=== PATIENT | female | born 1985 ===

== ENCOUNTER 2017-03-17 11:00 | Emergency (ER) | payer OTHER ==
[2017-03-17 11:00] VITALS: BMI 28.3
[2017-03-17 11:16] VITALS: BP 122/62; PULSE 74; RESP 20; TEMP 96.8; O2SAT 100
[2017-03-17 12:56] LABS: BASO % 0.4 % (0.0-2.0); EOS % 0.9 % (0.0-4.0); HEMATOCRIT 37.4 % (34.0-47.0); LYMPH # 1.3 K/uL (1.0-4.3); LYMPH % 34.4 % (20.0-40.0); MEAN CELL VOLUME 87.6 fl (81.0-99.0); MEAN CORPUSCULAR HEMOGLOBIN 29.2 pg (27.0-31.0); MEAN CORPUSCULAR HGB CONC 33.4 g/dL (33.0-37.0); MEAN PLATELET VOLUME 7.8 fl (7.2-11.7); MONO # 0.2 K/uL (0.0-0.8); MONO % 4.8 % (0.0-10.0); NEUT # 2.3 K/uL (1.8-7.0); NEUT % 59.5 % (50.0-75.0); RED CELL DISTRIBUTION WIDTH 13.6 % (11.5-14.5); WHITE BLOOD COUNT 3.8 K/uL (4.8-10.8)
[2017-03-17 13:08] LABS: BLOOD UREA NITROGEN 10 mg/dl (7-17); CALCIUM 8.8 mg/dL (8.4-10.2); CARBON DIOXIDE 26 mmol/L (22-30); CHLORIDE 105 mmol/L (98-107); GFR AFRICAN-AMERICAN > 60; GLUCOSE,RANDOM 89 mg/dL (65-105); SODIUM 141 mmol/l (132-148)
--- NOTE | 2017-03-17 13:37 | US ---
Indication: Vaginal bleeding Comparison: Ob transvaginal ultrasound performed 04/22/14 Technique: Transvaginal pelvic ultrasound. Findings: The uterus measures approximately 9.0 x 6.7 x 4.7 cm. Anteverted. Cervix length measures approximately 4.3 cm. Nabothian cysts. Endometrial thickness measures approximately 7 mm. No evidence of intrauterine gestational sac. The right ovary measures 2.9 x 2.8 x 2.5 cm. The left ovary measures 4.5 x 3.5 x 1.4 cm. Blood flow was demonstrated to both ovaries. Impression: No evidence of intrauterine gestational sac. If indeed the patient is based on serum beta HCG values, the sonographic findings represent either: Very early IUP; embryonic demise; ectopic gestation. Follow-up with serial quantitative serum beta HCG measurements and post OBGYN follow-up as clinically indicated, since ectopic gestation cannot be excluded based only on sonographic findings.
--- NOTE | 2017-03-17 13:46 | ED PDOC ---
HPI: Female Pain Time Seen by Provider: 03/17/17 11:43 Chief Complaint (Nursing): Female Genitourinary Chief Complaint (Provider): Vaginal bleeding History Per: Patient History/Exam Limitations: no limitations Onset/Duration Of Symptoms: Days (3) Current Symptoms Are (Timing): Still Present Additional History Per: Patient Additional Complaint(s): 31yo female, , presents to ED with complaints of vaginal spotting for the past 3 days and vaginal bleeding with clots since earlier today. Patient states she took 3x home tests last week which were all positive; patient believes she is 3weeks . She reports lower abdominal cramping as well. Denies any syncope, vomiting, dysuria, fevers. No other medical complaints. Abnormal Vaginal Bleeding: Yes : 3 Para: 2 Past Medical History Reviewed: Historical Data, Nursing Documentation, Vital Signs Vital Signs: Last Vital Signs Temp 96.8 F L 03/17/17 11:15 Pulse 74 03/17/17 11:15 Resp 20 03/17/17 11:15 BP 122/62 03/17/17 11:15 Pulse Ox 100 03/17/17 11:15 - Medical History PMH: No Chronic Diseases Denies: Chronic Kidney Disease - Surgical History Surgical History: No Surg Hx - Family History Family History: States: No Known Family Hx - Social History Current smoker - smoking cessation education provided: No Alcohol: None Drugs: Denies - Home Medications Home Medications: Ambulatory Orders Medication Instructions Recorded Vitamins8 [Classic 1 tab PO DAILY 12/17/14 ] Ibuprofen [Motrin Tab] 600 mg PO Q6 PRN #30 tab 12/19/14 Sennosides A and B [Senokot] 8.6 mg PO HS #30 tab 12/19/14 - Allergies Allergies/Adverse Reactions: Allergies Allergy/AdvReac Type Severity Reaction Status Date / Time No Known Allergies Allergy Verified 04/22/14 12:21 Review of Systems ROS Statement: Except As Marked, All Systems Reviewed And Found Negative Constitutional: Negative for: Fever Gastrointestinal: Positive for: Abdominal Pain. Negative for: Vomiting Genitourinary Female: Positive for: Vaginal Bleeding. Negative for: Dysuria Neurological: Negative for: Other (syncope) Physical Exam - Reviewed Nursing Documentation Reviewed: Yes Vital Signs Reviewed: Yes - Physical Exam Appears: Positive for: Non-toxic, No Acute Distress Head Exam: Positive for: ATRAUMATIC, NORMAL INSPECTION, NORMOCEPHALIC Skin: Positive for: Normal Color Eye Exam: Positive for: Normal appearance, EOMI, PERRL Neck: Positive for: Normal, Supple Cardiovascular/Chest: Positive for: Regular Rate, Rhythm Respiratory: Positive for: Normal Breath Sounds. Negative for: Respiratory Distress Gastrointestinal/Abdominal: Positive for: Normal Exam, Soft. Negative for: Tenderness Back: Positive for: Normal Inspection Extremity: Positive for: Normal ROM Neurologic/Psych: Positive for: Alert, Oriented. Negative for: Motor/Sensory Deficits - Laboratory Results Result Diagrams: 03/17/17 12:52 03/17/17 12:52 - ECG O2 Sat by Pulse Oximetry: 100 (RA) Pulse Ox Interpretation: Normal Medical Decision Making Medical Decision Making: Time: 1228 Impression: Vaginal bleeding in early Differential: Ectopic , threatened , early Plan: -- Labs -- US OB Transvaginal Reassess US reviewed. Scribe Attestation: Documented by Pau Joseph acting as a scribe for Jennifer Granado MD. Provider Attestation: All medical record entries made by the Scribe were at my direction and personally dictated by me. I have reviewed the chart and agree that the record accurately reflects my personal performance of the history, physical exam, medical decision making, and the department course for this patient. I have also personally directed, reviewed, and agree with the discharge instructions and disposition. Disposition - Clinical Impression Clinical Impression: Threatened - Patient ED Disposition Is Patient to be Admitted: No Doctor Will See Patient In The: Office Counseled Patient/Family Regarding: Studies Performed, Diagnosis - Disposition Referrals: [facility] [Outside] Disposition: Routine/Home Disposition Time: 17:00 Condition: GOOD Additional Instructions: Return to ER for recheck in 2-3 days. Instructions: Threatened Miscarriage (ED) Print Language: RUSSIAN
== END 2017-03-17 17:02 | disposition home or self-care (01) ==
LOC: H.ER 11:00
DX: O20.0 Threatened abortion (principal); Z3A.01 Less than 8 weeks gestation of pregnancy

== ENCOUNTER 2017-03-21 09:34 | Emergency (ER) | payer OTHER ==
[2017-03-21 09:35] VITALS: BMI 28.3
--- NOTE | 2017-03-21 10:02 | ED PDOC ---
HPI: General Adult Time Seen by Provider: 03/21/17 09:52 Chief Complaint (Nursing): Abnormal Labs Chief Complaint (Provider): Abnormal Labs History Per: Patient History/Exam Limitations: no limitations Recently: Seen In ED Additional History Per: Prior Records Additional Complaint(s): Ember Bucio is a 31 year old female who presents to the ED for repeat test. She was seen here on 03/17 for vaginal bleeding and had a positive test, and was instructed to follow up in 2-3 days for repeat test. Patient reports the bleeding stopped 2 days ago, but she continues to have non-radiating low back pain. She denies any associated nausea, vomiting, dysuria, fever, or headache. PMD: None Past Medical History Reviewed: Historical Data, Nursing Documentation, Vital Signs - Medical History PMH: No Chronic Diseases Denies: Chronic Kidney Disease - Surgical History Surgical History: No Surg Hx - Family History Family History: States: Unknown Family Hx - Social History Current smoker - smoking cessation education provided: No Alcohol: None Drugs: Denies - Home Medications Home Medications: Ambulatory Orders Medication Instructions Recorded Vitamins8 [Classic 1 tab PO DAILY 12/17/14 ] Ibuprofen [Motrin Tab] 600 mg PO Q6 PRN #30 tab 12/19/14 Sennosides A and B [Senokot] 8.6 mg PO HS #30 tab 12/19/14 - Allergies Allergies/Adverse Reactions: Allergies Allergy/AdvReac Type Severity Reaction Status Date / Time No Known Allergies Allergy Verified 04/22/14 12:21 Review of Systems ROS Statement: Except As Marked, All Systems Reviewed And Found Negative Constitutional: Negative for: Fever Gastrointestinal: Negative for: Nausea, Vomiting Genitourinary Female: Negative for: Dysuria, Vaginal Bleeding Musculoskeletal: Positive for: Back Pain Neurological: Negative for: Headache Physical Exam - Reviewed Nursing Documentation Reviewed: Yes Vital Signs Reviewed: Yes - Physical Exam Appears: Positive for: Non-toxic, No Acute Distress Head Exam: Positive for: ATRAUMATIC, NORMAL INSPECTION, NORMOCEPHALIC Skin: Positive for: Normal Color, Warm, Dry Eye Exam: Positive for: EOMI, Normal appearance, PERRL Neck: Positive for: Normal, Painless ROM, Supple Cardiovascular/Chest: Positive for: Regular Rate, Rhythm. Negative for: Murmur Respiratory: Positive for: Normal Breath Sounds. Negative for: Accessory Muscle Use, Respiratory Distress Gastrointestinal/Abdominal: Positive for: Normal Exam, Soft. Negative for: Tenderness, Distended Back: Positive for: Other (Mild tenderness to bilateral paraspinal regions). Negative for: Vertebral Tenderness Extremity: Positive for: Normal ROM, Capillary Refill (<2 sec). Negative for: Pedal Edema, Deformity Neurologic/Psych: Positive for: Alert, Oriented (x3) Medical Decision Making Medical Decision Making: Reviewed labs and imaging from 03/17, which are as follows: Time: 13:35, 03/17/17 US Transvag/Pelvic: Findings: The uterus measures approximately 9.0 x 6.7 x 4.7 cm. Anteverted. Cervix length measures approximately 4.3 cm. Nabothian cysts. Endometrial thickness measures approximately 7 mm. No evidence of intrauterine gestational sac. The right ovary measures 2.9 x 2.8 x 2.5 cm. The left ovary measures 4.5 x 3.5 x 1.4 cm. Blood flow was demonstrated to both ovaries. Impression: No evidence of intrauterine gestational sac. If indeed the patient is based on serum beta HCG values, the sonographic findings represent either: Very early IUP; embryonic demise; ectopic gestation. Follow-up with serial quantitative serum beta HCG measurements and post OBGYN follow-up as clinically indicated, since ectopic gestation cannot be excluded based only on sonographic findings. 03/17/17: Beta-HCG at 198.07 Initial Impression: Threatened miscarriage Time: 10:04 Initial Plan: -- serum --Urine dipstick --Reevaluation Labs reviewed. Beta-HCG is 35.16. Scribe Attestation: Documented by Laurence Stewart, acting as a scribe for Alix Hooker MD Provider Scribe Attestation: All medical record entries made by the Scribe were at my direction and personally dictated by me. I have reviewed the chart and agree that the record accurately reflects my personal performance of the history, physical exam, medical decision making, and the department course for this patient. I have also personally directed, reviewed, and agree with the discharge instructions and disposition. 15: case d/w Dr. Almeida. Recommends followup in the clinic and re-eval if there is abdominal or pelvic pain. Disposition - Clinical Impression Clinical Impression: Miscarriage - Patient ED Disposition Is Patient to be Admitted: No Doctor Will See Patient In The: Office Counseled Patient/Family Regarding: Diagnosis, Need For Followup - Disposition [facility] [Outside] Disposition: Routine/Home Disposition Time: 11:51 Condition: STABLE Instructions: Spontaneous Miscarriage (ED) Forms: [employer] (Lithuanian) Print Language: UKRAINIAN - POA Present On Arrival: None
== END 2017-03-21 12:04 | disposition home or self-care (01) ==
LOC: H.ER 09:34
DX: O03.9 Complete or unspecified spontaneous abortion without complication (principal)

== ENCOUNTER 2017-05-27 10:24 | Emergency (ER) | payer SELFPAY ==
[2017-05-27 10:24] VITALS: BMI 28.3
[2017-05-27 10:48] VITALS: RESP 18; TEMP 98
[2017-05-27] MEDS ORDERED: Lactated Ringer's 1,000 ML IV ONE (13:15)
[2017-05-27 13:55] LABS: BASO % 0.3 % (0.0-2.0); EOS % 0.2 % (0.0-4.0); LYMPH # 1.6 K/uL (1.0-4.3); LYMPH % 25.6 % (20.0-40.0); MEAN CELL VOLUME 87.4 fl (81.0-99.0); MEAN CORPUSCULAR HEMOGLOBIN 29.1 pg (27.0-31.0); MEAN CORPUSCULAR HGB CONC 33.3 g/dL (33.0-37.0); MEAN PLATELET VOLUME 8.2 fl (7.2-11.7); MONO # 0.3 K/uL (0.0-0.8); NEUT # 4.2 K/uL (1.8-7.0); NEUT % 68.9 % (50.0-75.0); NRBC % 0.1 % (0.0-0.0); RBC 4.48 Mil/uL (3.80-5.20); RED CELL DISTRIBUTION WIDTH 13.7 % (11.5-14.5); WHITE BLOOD COUNT 6.1 K/uL (4.8-10.8)
[2017-05-27 14:00] LABS: SQUAMOUS EPITHIAL 7 /hpf (0-5); URINE BACTERIA OCC (<OCC); URINE BILIRUBIN NEGATIVE (NEGATIVE); URINE BLOOD NEGATIVE (NEGATIVE); URINE CLARITY CLOUDY (Clear); URINE COLOR AMBER (YELLOW); URINE GLUCOSE (UA) NEG (Normal); URINE LEUKOCYTE ESTERASE LARGE Leu/uL (Negative); URINE NITRATE NEGATIVE (NEGATIVE); URINE PROTEIN 30 mg/dL (NEGATIVE)
--- NOTE | 2017-05-27 14:12 | ED PDOC ---
HPI:Nausea, Vomiting, Diarrhea Time Seen by Provider: 05/27/17 12:18 Chief Complaint (Nursing): GI Problem Chief Complaint (Provider): Nausea, headache History Per: Patient History/Exam Limitations: no limitations Onset/Duration Of Symptoms: Days Current Symptoms Are (Timing): Still Present Have you had recent travel within the past 21 days to any of the following countries: [place], [place], [place] or [place]?: No Additional Complaint(s): 31yo female, LMP on 04/14/17, presents to ED today with complaints of nausea in the morning for the past week. She also reports a gradual onset holocephalic headache. She thinks she is but has not take any home exams or had care. She denies any abdominal pain, pelvic pain, vaginal bleeding or spotting, dysuria, back pain or history of ectopic pregnancies. She also denies any head injuries. No other complaints. Abnormal Vaginal Bleeding: No Past Medical History Reviewed: Historical Data, Nursing Documentation, Vital Signs Vital Signs: Last Vital Signs Temp 98 F 05/27/17 10:45 Pulse 78 05/27/17 10:45 Resp 18 05/27/17 10:45 BP 98/66 L 05/27/17 10:45 Pulse Ox 98 05/27/17 10:45 - Medical History PMH: No Chronic Diseases Denies: Chronic Kidney Disease - Surgical History Surgical History: No Surg Hx - Family History Family History: States: Unknown Family Hx - Home Medications Home Medications: Ambulatory Orders Medication Instructions Recorded Vitamins8 [Classic 1 tab PO DAILY 12/17/14 ] Ibuprofen [Motrin Tab] 600 mg PO Q6 PRN #30 tab 12/19/14 Sennosides A and B [Senokot] 8.6 mg PO HS #30 tab 12/19/14 Doxylamine/Pyridoxine HCl (B6) 1 - 2 each PO HS PRN #30 tablet. 05/27/17 [Rajesh Agrawal 10-10 mg Tablet] Nitrofurantoin Macrocrystals 100 mg PO BID #14 cap 05/27/17 [Macrobid] - Allergies Allergies/Adverse Reactions: Allergies Allergy/AdvReac Type Severity Reaction Status Date / Time No Known Allergies Allergy Verified 04/22/14 12:21 Review of Systems ROS Statement: Except As Marked, All Systems Reviewed And Found Negative Constitutional: Negative for: Fever, Chills Gastrointestinal: Positive for: Nausea Genitourinary Female: Negative for: Vaginal Discharge, Vaginal Bleeding, Pelvic Pain Musculoskeletal: Negative for: Back Pain Neurological: Positive for: Headache Physical Exam - Reviewed Nursing Documentation Reviewed: Yes Vital Signs Reviewed: Yes - Physical Exam Appears: Positive for: Well, Non-toxic, No Acute Distress Head Exam: Positive for: ATRAUMATIC, NORMAL INSPECTION, NORMOCEPHALIC Skin: Positive for: Normal Color, Warm, DRY Eye Exam: Positive for: EOMI, Normal appearance, PERRL ENT: Positive for: Normal ENT Inspection Neck: Positive for: Normal, Painless ROM Cardiovascular/Chest: Positive for: Regular Rate, Rhythm Respiratory: Positive for: CNT, Normal Breath Sounds Gastrointestinal/Abdominal: Positive for: Normal Exam, Soft. Negative for: Tenderness Back: Positive for: Normal Inspection. Negative for: L CVA Tenderness, R CVA Tenderness Extremity: Positive for: Normal ROM. Negative for: Pedal Edema Neurologic/Psych: Positive for: Alert, Oriented - Laboratory Results Result Diagrams: 05/27/17 13:48 05/27/17 13:48 Urine POC: Positive - ECG O2 Sat by Pulse Oximetry: 98 (RA) Pulse Ox Interpretation: Normal - Progress ED Course And Treament: On re-evaluation, pt reports feeling much better. Denies headache, abdominal pain, pelvic pain, vaginal bleeding. Repeat BP: 98/51 Pt. states her BP usually runs low and that these numbers are normal for her. Medical Decision Making Medical Decision Making: Impression: Nausea, headache Plan: -- UPreg -- Labs -- IV Fluids -- Reglan 10 mg IVP -- Tylenol 650 mg PO Reassess Scribe Attestation: Documented by Pau Joseph acting as a scribe for BELA Chaidez Provider Attestation: All medical record entries made by the Scribe were at my direction and personally dictated by me. I have reviewed the chart and agree that the record accurately reflects my personal performance of the history, physical exam, medical decision making, and the department course for this patient. I have also personally directed, reviewed, and agree with the discharge instructions and disposition. Disposition - Clinical Impression Clinical Impression: Hyperemesis, UTI (urinary tract infection) - Patient ED Disposition Is Patient to be Admitted: No - Disposition Referrals: [facility] [Outside] [facility]Outside] [facility] [Outside] Disposition: Routine/Home Disposition Time: 16:00 Condition: IMPROVED Prescriptions: Doxylamine/Pyridoxine HCl (B6) [Rajesh Agrawal 10-10 mg Tablet] 1 - 2 each PO HS PRN #30 tablet. PRN Reason: Nausea/Vomiting Nitrofurantoin Macrocrystals [Macrobid] 100 mg PO BID #14 cap Instructions: Hyperemesis Gravidarum (ED), Urinary Tract Infection in (ED) Forms: [facility] (St [place]ian) Print Language: MAURITANIAN
[2017-05-27 14:21] LABS: ALB/GLOB RATIO 1.3 (1.0-2.1); ALBUMIN 4.4 g/dL (3.5-5.0); ALT/SGPT 30 U/L (9-52); AST/SGOT 23 U/L (14-36); BLOOD UREA NITROGEN 11 mg/dl (7-17); CALCIUM 9.1 mg/dL (8.4-10.2); GFR AFRICAN-AMERICAN > 60; GFR NON-AFRICAN AMERICAN > 60
[2017-05-27 16:37] VITALS: BP 98/51; PULSE 68
[2017-05-28 00:56] VITALS: O2SAT 98
== END 2017-05-27 16:37 | disposition home or self-care (01) ==
LOC: H.ER 10:24
DX: O21.1 Hyperemesis gravidarum with metabolic disturbance (principal); O23.40 Unspecified infection of urinary tract in pregnancy, unspecified trimester
CPT/HCPCS: 80053; 81003; 81025; 84702; 85025; 87086; 96361; 96374; 99285; J2765; J7120

== ENCOUNTER 2017-08-11 13:26 | Emergency (ER) | payer SELFPAY ==
[2017-08-11 13:26] VITALS: BMI 28.3
[2017-08-11 14:05] VITALS: O2SAT 99
[2017-08-11 15:29] LABS: BASO % 0.3 % (0.0-2.0); EOS # 0.1 K/uL (0.0-0.7); EOS % 1.7 % (0.0-4.0); HEMOGLOBIN 10.5 g/dL (12.0-16.0); LYMPH # 1.7 K/uL (1.0-4.3); LYMPH % 19.7 % (20.0-40.0); MEAN CELL VOLUME 87.6 fl (81.0-99.0); MEAN CORPUSCULAR HEMOGLOBIN 30.2 pg (27.0-31.0); MEAN CORPUSCULAR HGB CONC 34.5 g/dL (33.0-37.0); MEAN PLATELET VOLUME 7.5 fl (7.2-11.7); MONO # 0.4 K/uL (0.0-0.8); MONO % 5.3 % (0.0-10.0); NEUT # 6.2 K/uL (1.8-7.0); NRBC % 0.1 % (0.0-0.0); RBC 3.47 Mil/uL (3.80-5.20); RED CELL DISTRIBUTION WIDTH 13.7 % (11.5-14.5); WHITE BLOOD COUNT 8.5 K/uL (4.8-10.8)
[2017-08-11 15:34] LABS: ALB/GLOB RATIO 1.1 (1.0-2.1); ALBUMIN 3.5 g/dL (3.5-5.0); ALT/SGPT 25 U/L (9-52); AST/SGOT 19 U/L (14-36); BLOOD UREA NITROGEN 10 mg/dl (7-17); CALCIUM 8.9 mg/dL (8.4-10.2); GFR AFRICAN-AMERICAN > 60; GFR NON-AFRICAN AMERICAN > 60
[2017-08-11 15:50] LABS: SQUAMOUS EPITHIAL 7 /hpf (0-5); URINE BACTERIA RARE (<OCC); URINE BILIRUBIN NEGATIVE (NEGATIVE); URINE BLOOD NEGATIVE (NEGATIVE); URINE CLARITY CLOUDY (Clear); URINE COLOR YELLOW (YELLOW); URINE GLUCOSE (UA) NEG (Normal); URINE LEUKOCYTE ESTERASE LARGE Leu/uL (Negative); URINE PROTEIN NEGATIVE (NEGATIVE); URINE UROBILINOGEN 0.2-1.0 mg/dL (0.2-1.0)
--- NOTE | 2017-08-11 17:26 | ED PDOC ---
HPI: Abdomen Time Seen by Provider: 08/11/17 14:22 Chief Complaint (Nursing): Abdominal Pain Chief Complaint (Provider): Fall History Per: Patient History/Exam Limitations: no limitations Onset/Duration Of Symptoms: Hrs (3) Outside of [place] travel?: No Current Symptoms Are (Timing): Still Present Exacerbating Factors: None Alleviating Factors: None Additional Complaint(s): Pt who is 19 weeks slipped and fell onto her knees today sustaining bilateral abrasion. She is concerned with her unborn child. Pt ambulates without assistance and presents with no other injuries including FOOSH injury; pt denies abdominal pain, discharge or bleeding Past Medical History Vital Signs: Last Vital Signs Temp 98.3 F 08/11/17 14:02 Pulse 81 08/11/17 14:02 Resp 20 08/11/17 14:02 BP 100/64 08/11/17 14:02 Pulse Ox 99 08/11/17 17:56 - Medical History PMH: Denies: Chronic Kidney Disease Other PMH: - Family History Family History: States: Unknown Family Hx - Home Medications Home Medications: Ambulatory Orders Medication Instructions Recorded Vitamins8 [Classic 1 tab PO DAILY 12/17/14 ] - Allergies Allergies/Adverse Reactions: Allergies Allergy/AdvReac Type Severity Reaction Status Date / Time No Known Allergies Allergy Verified 08/11/17 14:08 Review of Systems ROS Statement: Except As Marked, All Systems Reviewed And Found Negative Skin: Positive for: Other (bilateral patellar abrasion) Physical Exam - Reviewed Nursing Documentation Reviewed: Yes Vital Signs Reviewed: Yes - Physical Exam Appears: Positive for: Well, Non-toxic, No Acute Distress Head Exam: Positive for: ATRAUMATIC, NORMAL INSPECTION, NORMOCEPHALIC Skin: Positive for: Normal Color Eye Exam: Positive for: Normal appearance ENT: Positive for: Normal ENT Inspection Neck: Positive for: Normal, Painless ROM, Supple. Negative for: Decreased ROM Cardiovascular/Chest: Positive for: Regular Rate, Rhythm. Negative for: Edema, Gallop, Murmur, Bradycardia, Tachycardia, Friction Rub, Irregularly Irregular Respiratory: Positive for: Normal Breath Sounds. Negative for: Accessory Muscle Use, Crackles, Rales, Rhonchi, Stridor, Wheezing, Respiratory Distress Pulses-Carotid (L): 2+ Pulses-Carotid (R): 2+ Pulses-Radial (L): 2+ Pulses-Radial (R): 2+ Gastrointestinal/Abdominal: Positive for: Bowel Sounds Pelvic Exam: Negative for: Active Bleeding, Discharge - Laboratory Results Result Diagrams: 08/11/17 15:10 08/11/17 15:10 - ECG O2 Sat by Pulse Oximetry: 99 Medical Decision Making Medical Decision Making: abrasions on knees bilaterally will be cleaned and tx with topical abx U/S to ruleout issus with PROCEDURE: OB Pelvic Ultrasound HISTORY: 18wks preg; fall LMP: 04/14/2017 suggesting estimated gestational age of 17 weeks 0 days COMPARISON: None available. FINDINGS: UTERUS: Gestational sac: Single viable intrauterine gestation is identified in transverse lie within in a fundal placenta and average ultrasonic age of 17 weeks 4 days. cardiac activity recorded at 153 beats per minute. The developing placenta is identified at the anterior fundus with no placental abruption or previa demonstrated. A normal cervical length is identified at 4.1 cm. Internal os appears closed. Uterine myometrium appears unremarkable as imaged. The following mean biometry was obtained: Biparietal diameter 3.8 cm corresponds 17 weeks 4 days. Head circumference 14.3 cm corresponds to 17 weeks 4 days. Abdominal circumference 11.8 cm corresponds to 17 weeks 4 days. Femur length 2.5 cm corresponds to 17 weeks 4 days. Estimated weight 199.85 g (7 lb 1 oz). HC/AC ratio 1.21 which falls within the normal range. anatomical survey is limited revealing bilateral kidneys with partial imaging of the spine. The urinary bladder is identified as well as the stomach and a normal-appearing abdominal umbilical cord insertion. No adequate four-chamber heart view is a appreciated nor the nuchal fold, complete spine or three-vessel umbilical cord. Date of delivery (Ultrasound estimated) : 01/15/2018. RIGHT OVARY: Not identified. No suspicious adnexal mass or fluid collection appreciable. LEFT OVARY: Not identified. No suspicious adnexal mass or fluid collection appreciable. FREE FLUID: None. OTHER FINDINGS: None. IMPRESSION: A single viable intrauterine gestation is identified intra versus lie with an average ultrasonic age of 17 weeks 4 days and cardiac activity of 153 beats per minute. LMP derived dates are concordant with average ultrasonic age. No placental abruption or previa. Incomplete anatomical survey. Consider follow-up elective obstetric ultrasound for complete survey as indicated. Pt will be discharged with orders to f/u with Dr Sommers in 3-5 days Disposition - Clinical Impression Clinical Impression: Fall from slipping, - Patient ED Disposition Is Patient to be Admitted: No Doctor Will See Patient In The: Office Counseled Patient/Family Regarding: Studies Performed, Diagnosis, Need For Followup - Disposition Referrals: Shahrzad Sommers MD [Staff Provider] - Disposition: Routine/Home Disposition Time: 17:56 Condition: GOOD Instructions: Medications and , - The Third Month Forms: [employer] (Romansh)
[2017-08-11 17:58] VITALS: PULSE 73; RESP 18; TEMP 98.1
[2017-08-11 18:05] VITALS: BP 100/60
== END 2017-08-11 18:13 | disposition home or self-care (01) ==
LOC: H.ER 13:26
DX: S80.219A Abrasion, unspecified knee, initial encounter (principal); W01.0XXA Fall on same level from slipping, tripping and stumbling without subsequent striking against object, initial encounter; Y92.89 Other specified places as the place of occurrence of the external cause; Z3A.18 18 weeks gestation of pregnancy

== ENCOUNTER 2018-01-15 04:58 | Inpatient (IN) | payer MEDICAID, SELFPAY ==
[2018-01-15 05:35] VITALS: BMI 29.4
[2018-01-15] MEDS ORDERED: Lactated Ringer's 1,000 ML IV ONE (05:37)
[2018-01-15] MEDS ORDERED: Oxytocin 30 UNITS in Sodium Chloride 0.9% 500 ML IV ONE (05:39)
[2018-01-15] MEDS ORDERED: OXYTOCIN/0.9 % NS 20 UNIT/1,000 ML BAG IV SCH (05:45)
[2018-01-15] MEDS ORDERED: Lactated Ringer's 1,000 ML IV SCH (05:45)
[2018-01-15 06:14] LABS: BASO % 0.3 % (0.0-2.0); EOS % 0.5 % (0.0-4.0); HEMOGLOBIN 12.4 g/dL (12.0-16.0); LYMPH # 1.9 K/uL (1.0-4.3); LYMPH % 28.3 % (20.0-40.0); MEAN CORPUSCULAR HEMOGLOBIN 26.5 pg (27.0-31.0); MEAN CORPUSCULAR HGB CONC 32.7 g/dL (33.0-37.0); MEAN PLATELET VOLUME 8.1 fl (7.2-11.7); MONO # 0.4 K/uL (0.0-0.8); MONO % 6.1 % (0.0-10.0); NEUT # 4.4 K/uL (1.8-7.0); NEUT % 64.8 % (50.0-75.0); RBC 4.69 Mil/uL (3.80-5.20); RED CELL DISTRIBUTION WIDTH 25.5 % (11.5-14.5); WHITE BLOOD COUNT 6.7 K/uL (4.8-10.8)
[2018-01-15] MEDS ORDERED: Fentanyl/Bupivacaine HCl 250 ML EPI ONE (06:24)
--- NOTE | 2018-01-15 08:13 | OBHP ---
Datetime: 01/15/2018 06:15 IP Adm Impression: Term, intrauterine IP Admit Plan: Admit to unit; Initiate labor protocol Admit Comment, IP Provider: 32 y/o , 39.3 wks based on LMP 04/14/18 and NATALIA of 01/19/18 presen ts with Contractions and maternal discomfort. Contraction started around 2 am today, Q5 mins which be came Q2-3 mins with lower abdominal pressure and pain. Denies any LOF or VB. Denies fever, chills, dy suria, CP, SOB or dizziness. PNC: [facility] with Dr. Hunter course: + HPV 16 and 18, Suspected macrosomia, anemia of PobHx: @ 41 wk 2008, 2014, 1 miscarriage PMHx: Denies PSHx: Denies Allergies: NKDA Family Hx; denies Medications: PNvs, Feosol SocialHx: Denies alcohl/tobacco/drugs PE: General: in acute distress Chest: RRR, S1S2 present Lungs: CTA B/L Abdomen: Gravid, lower abd tenderness Ext: No pedal edema SVE: 8/90%/-2 A/P: 32 y/o , 39.3 wks based on LMP 04/14/18 and NATALIA of 01/19/18 presents with Contractions and maternal discomfort. - EFM and toco monitoring - Cervix 7-8cm/90%/-2 - admit to unit - initiate labor protocol - CBC, Type and screen stat - GBS Neg, HIV neg, RPR neg, Hbsag neg, Rubella immune - LR @999 and 125 ml/hr - monitor for cervical change - Anesthesia consult for epidural - NPO Case discussed with attending Kranthi Nolen, PGY1 Attending Note: Patient was examined with medical student and I agree with the above assessment. Pelvic Type - PN: Not Done Extremities - PN: Normal Abdomen - PN: Normal Back - PN: Normal Breast - PN: Not Done Lungs - PN: Normal Heart - PN: Normal Thyroid - PN: Not Done Neurologic - PN: Normal HEENT - PN: Normal General - PN: Normal FHR - Baseline A Provider: 130 Membranes, Provider: Intact Contraction Comments Provider: regular Comments, ACOG Physical Exam: General: in acute distress Chest: RRR, S1S2 present Lungs: CTA B/L Abdomen: Gravid, lower abd tenderness Ext: No pedal edema SVE: 7-8cm/90%/-2 IP Hx Assessment: The History has been Reviewed and is Current EGA AdmitDate IP: 39.3 Vital Signs Provider: Reviewed; Within Normal Limits IP Indication for Induction: Not Applicable IP Chief Complaint: Uterine contractions NICHD Variability Prov Fetus A: Moderate 6-25bpm NICHD Accel Fetus A IP Provider: 15X15 FHR Category Provider Fetus A: Category I NICHD Decel Fetus A IP Provider: None Dilatation, Provider: 7-8 Effacement, Provider: 90 Station, Provider: -2 Genitourinary Exam: Normal DTRs - PN: Not Done
--- NOTE | 2018-01-15 08:21 | OBPN ---
Datetime: 01/15/2018 08:17 IP Progress Impression: Normal progression of labor; Reassuring heart rate IP Procedures: Artificial ROM; Sterile Vag Exam IP Progress Plan: Continue present management; Anticipate Vaginal Delivery Contraction Comments Provider: Q 2-3 FHR - Baseline A Provider: 140 Gestation - Est Wks by US: 39.3 Presentation-Admit: Vertex IP Progress Note Comment: in active labor Clinically stable. Plan: Continue monitoring the progress of labor. Vital Signs Provider: Reviewed NICHD Accel Fetus A IP Provider: 15X15 FHR Category Provider Fetus A: Category I NICHD Variability Prov Fetus A: Moderate 6-25bpm Dilatation, Provider: 9 Effacement, Provider: 100 Station, Provider: -2 NICHD Decel Fetus A IP Provider: None Datetime: 01/15/2018 06:15 Membranes, Provider: Intact
[2018-01-15] MEDS ORDERED: Benzocaine/Menthol SPRAY TOP PRN ×2 (09:12→15:44)
[2018-01-15] MEDS ORDERED: Oxycodone/Acetaminophen 5/325 mg Tab PO PRN (09:12)
--- NOTE | 2018-01-15 09:19 | OBDS ---
MATERNAL INFORMATION Provider Comments: Uncomplicated spontaneous vaginal delivery of a viable male infant with raul ght of 9Ibs 2 oz and scores of 9 and 9. Delivered in Right occipito anterior position over a sm all second degree which was repaired with 3-0 vicryl rapide under epidural anesthesia. EBL- 300mls Patient tolerated procedure well. LABOR SUMMARY EDC: 01/19/2018 00:00 LABOR INFORMATION Onset of Labor: 01/15/2018 02:00 Group B Beta Strep: Negative MEMBRANES Membranes Rupture Method: Artificial Rupture of Membranes: 01/15/2018 07:27 Amniotic Fluid Color: Light Meconium Amniotic Fluid Amount: Moderate IDENTIFICATION/MEDS BABY A ID Band Number: [id number]
[2018-01-16 07:15] LABS: BASO % 0.2 % (0.0-2.0); EOS # 0.1 K/uL (0.0-0.7); EOS % 0.8 % (0.0-4.0); HEMOGLOBIN 9.7 g/dL (12.0-16.0); LYMPH % 22.6 % (20.0-40.0); MEAN CELL VOLUME 81.8 fl (81.0-99.0); MEAN CORPUSCULAR HEMOGLOBIN 27.1 pg (27.0-31.0); MEAN CORPUSCULAR HGB CONC 33.1 g/dL (33.0-37.0); MEAN PLATELET VOLUME 7.9 fl (7.2-11.7); MONO # 0.5 K/uL (0.0-0.8); MONO % 5.2 % (0.0-10.0); NEUT # 6.3 K/uL (1.8-7.0); NEUT % 71.2 % (50.0-75.0); NRBC % 0.1 % (0.0-0.0); RBC 3.58 Mil/uL (3.80-5.20); RED CELL DISTRIBUTION WIDTH 25.2 % (11.5-14.5); WHITE BLOOD COUNT 8.8 K/uL (4.8-10.8)
--- NOTE | 2018-01-16 10:03 | OBPPN ---
Datetime: 01/16/2018 07:30 PP Pain Prov: Within normal limits PP Nausea Prov: Denies PP Flatus Prov: Yes PP BM Prov: Yes PP Breasts Prov: Not Done PP Heart Prov: Normal PP Lungs Prov: Normal PP Abdomen/Uterus Prov: Normal PP Lochia Prov: Normal PP Vulva/Perineum Prov: Not Done PP CVA Tenderness Prov: Normal PP Extremities Prov: Normal PP C/S Incision Prov: Not Applicable PP Progress Prov: Normal PP Impression Prov: Normal progression PP Plan Prov: Continue present management PP Progress Note Prov: PPD 1 S: 32 yo s/p NVD on 01/15/2018 at 08:46. Pt. is seen and examined at bedside this AM. No s ignificant overnight events. Pt reports occasional abdominal pain, but well controlled with pain meds . Pt is ambulating without any difficulties. Breast and bottle feeding baby. Tolerating PO diet. [place]och ia is similar to light menses in volume. Voiding freely, bowel movement, and passing gas per rectum. Denies fever, chills, diarrhea, nausea, vomiting, chest pain, dyspnea, and dizziness. O: VS: stable GEN: NAD Cardio: S1S2, no M/G/R Resp: clear breath sounds b/l Abdomen: BS+, NT, Uterus is firm and at the level of the umbilicus. EXT: No edema, calves nontender NEURO/PSYCHI: AAOx3, no grossly focal deficit, preserved affect and mood. Assessment/Plan: 32 yo s/p NVD on 01/15/2018 at 08:46. Pt remains afebrile, tolerating levon n with medication, tolerating PO intake, doing well on PPD1. OOB with caution SCDs for DVT prophylaxis, pt ambulating Ibuprofen 600mg for pain. Encourage and ambulating CBC post-delivery: 9.7/29.2 Start feosol 325 mg BID + Colace 100 mg qdaily Anticipated d/c to home, 01/17/2018. Case dw OB attending --- Brent Urbano MD PGY-2 Attending Note: patient was seen and evaluated with Resident and I agree with the above. IP PP Procedures: None Vital Signs Provider PP: Reviewed; Within Normal Limits
--- NOTE | 2018-01-17 09:43 | OBPPN ---
Datetime: 01/17/2018 06:37 PP Pain Prov: Within normal limits PP Nausea Prov: Denies PP Flatus Prov: Yes PP BM Prov: No PP Breasts Prov: Not Done PP Heart Prov: Normal PP Lungs Prov: Normal PP Abdomen/Uterus Prov: Normal PP Lochia Prov: Normal PP Vulva/Perineum Prov: Normal PP CVA Tenderness Prov: Not Done PP Extremities Prov: Normal PP C/S Incision Prov: Not Applicable PP Progress Prov: Normal PP Impression Prov: Normal progression PP Plan Prov: Continue present management PP Progress Note Prov: S: 32 yo s/p NVD on 01/15/2018 at 08:46. Pt. is seen and examined at bedside this AM. No significant overnight events. Pt reports occasional abdominal pain, but well cont rolled with pain meds. Pt is ambulating without any difficulties. Breast and bottle feeding baby. Marian erating PO diet. Lochia is similar to light menses in volume. Voiding freely, no bowel movement but p assing gas per rectum. Denies fever, chills, diarrhea, nausea, vomiting, chest pain, dyspnea, and diz ziness. O: VS: stable GEN: NAD Cardio: S1S2, no M/G/R Resp: clear breath sounds b/l Abdomen: BS+, NT, Uterus is firm and at the level of the umbilicus. EXT: No edema, calves nontender NEURO/PSYCHI: AAOx3, no grossly focal deficit, preserved affect and mood. Assessment/Plan: 32 yo s/p NVD on 01/15/2018 at 08:46. Pt remains afebrile, tolerating levon n with medication, tolerating PO intake, doing well on PPD1. OOB with caution SCDs for DVT prophylaxis, pt ambulating Ibuprofen 600mg for pain. Encourage and ambulating CBC post-delivery: 9.7/29.2 Start feosol 325 mg BID + Colace 100 mg qdaily Anticipated d/c to home, 01/17/2018. Case dw OB attending MD Hannah PGY1 Addendum by Dr. Galaviz: Pt evalauted independently and I agree with the above IP PP Procedures: None Vital Signs Provider PP: Reviewed
--- NOTE | 2018-01-17 09:45 | OBDCSUM ---
Datetime: 01/17/2018 06:41 Discharged to, Provider: Home Follow up at, Provider: [facility] Disch Instr Activity: Normal activity; May Shower Disch Instr Diet: Regular Discharge Diet restrict Prov: regualr Discharge Instructions, Provider: Routine instructions given Discharge Diagnosis, Provider: Term Delivered Discharge Time: 01/17/2018 10:00 Follow up in weeks, Provider: 6 weeks Disch Referrals: None Contraception discussed, Prov: Yes Disch Activity Restrictions: No exercising; No lifting; No driving; No sexual activity; Nothing in v agina - Yetter, tampons, douche Discharge Comment, Provider: DOA: 01/15/2018 EGA: 39.3 Diagnosis: NVD Term Risk factors: none Summary of : 32 yo F L_D summary DOL: 01/15/2018 at 08:46 NVD NB: M : 9 Weight: 4185g PP summary No serious complications during PP. Lochia= menses, mild pain, controlled with medications Rubella immune, Tdap 11/17/2017 Blood type: O+ CBC pp: .11/14. Discharge Date: 01/17/2018 Time 10:00 AM Discharge Instructions: - encourage - Ibuprofen for pain PRN - start Feosol 325 mg PO BID - Colace 100 mg qD for constipation - Ambulate as tolerated -f/u NB visit 3-7 days w/ nut picker and PP visit 6 weeks with OB; Case d/w OB attending --- MD Hannah PGY1 Contraception after Delivery: Foam/Condoms
[2018-01-17 23:38] VITALS: BP 97/70; PULSE 75; RESP 19; TEMP 98.1; O2SAT 100
== END 2018-01-17 13:30 | disposition home or self-care (01) | DRG 807 ==
LOC: H.EROB2 04:58 → H.L&D 05:37 → H.OB/GYN 11:42
PROVIDERS: ADMIT Obstetrics & Gynecology; ATTEND Obstetrics & Gynecology
PROC: 10E0XZZ Delivery of Products of Conception, External Approach (ICD-10-PCS; principal; 2018-01-15)
PROC: 0KQM0ZZ Repair Perineum Muscle, Open Approach (ICD-10-PCS; 2018-01-15)
PROC: 4A1HXCZ Monitoring of Products of Conception, Cardiac Rate, External Approach (ICD-10-PCS; 2018-01-15)
DX: O77.0 Labor and delivery complicated by meconium in amniotic fluid (principal); Z37.0 Single live birth; O70.1 Second degree perineal laceration during delivery; Z3A.39 39 weeks gestation of pregnancy